=== PATIENT | female | born 1960 | race African-American/Black ===

== ENCOUNTER 2018-07-18 15:04 | Emergency (ER) | payer MEDICAID ==
[~2018-07-18] VITALS: Ht 160 cm; Wt 60.0 kg
[2018-07-18] MEDS ORDERED: METHYLPREDNISOLONE SOD SUCC 125 MG/2 ML VIAL IV STA (22:58)
[2018-07-18] MEDS ORDERED: IPRATROPIUM BROMIDE (0.02%) 0.5MG/2.5ML NEB HHN STA (22:58)
[2018-07-18] MEDS ORDERED: ALBUTEROL (0.083%) 2.5MG/3ML NEB HHN STA (22:58)
[2018-07-18] MEDS ORDERED: ACETAMINOPHEN 500MG TABLET PO ONE (23:30)
[2018-07-19 00:06] LABS: CHLORIDE 108 mEq/L (98-107)
[2018-07-19 01:05] LABS: BASOPHILS % 0.9 % (0.0-2.0); HEMATOCRIT. 46.9 % (36.0-48.0); HEMOGLOBIN. 15.4 g/dL (12.0-16.0); LYMPHOCYTES % 36.8 % (20.0-50.0); MEAN CORPUSCULAR HEMOGLOBIN 29.1 pg (28.0-32.0); MEAN CORPUSCULAR VOLUME 88.8 fL (81.0-99.0); MEAN PLATELET VOLUME 9.2 fl (7.4-10.4); MONOCYTES % 7.4 % (2.0-8.0); NEUTROPHILS % 51.9 % (40.0-76.0); PLATELET 230 x1000/uL (130-400); RED BLOOD CELL COUNT 5.28 mill/uL (4.2-5.4); RED CELL DISTRIBUTION WIDTH 13.5 % (11.6-14.6)
[2018-07-19 01:49] VITALS: BP 122/77
== END 2018-07-19 01:51 | disposition home or self-care (01) ==
LOC: ER 15:04
DX: J45.901 Unspecified asthma with (acute) exacerbation (principal); M79.644 Pain in right finger(s); F31.9 Bipolar disorder, unspecified; F41.9 Anxiety disorder, unspecified; F17.200 Nicotine dependence, unspecified, uncomplicated; Z98.890 Other specified postprocedural states; Z88.1 Allergy status to other antibiotic agents
CPT/HCPCS: 36415; 71045; 80053; 84484; 85025; 93005; 94644; 96374; 99285; J2930; J7611

== ENCOUNTER 2021-03-11 17:08 | Emergency (ER) | payer MEDICAID ==
[~2021-03-11] VITALS: Ht 170.2 cm; Wt 70.0 kg
[2021-03-11] MEDS ORDERED: IBUPROFEN 600MG TABLET PO ONE (18:00)
[2021-03-11 19:32] VITALS: BP 141/89
[2021-03-11] MEDS ORDERED: IBUP-2029 MT (19:32)
== END 2021-03-11 20:02 | disposition home or self-care (01) ==
LOC: ER 17:08
DX: S90.02XA Contusion of left ankle, initial encounter (principal); J44.1 Chronic obstructive pulmonary disease with (acute) exacerbation; J45.909 Unspecified asthma, uncomplicated; Z98.890 Other specified postprocedural states; Z88.1 Allergy status to other antibiotic agents; Y04.0XXA Assault by unarmed brawl or fight, initial encounter; Y93.89 Activity, other specified; Y92.89 Other specified places as the place of occurrence of the external cause; Y99.8 Other external cause status
CPT/HCPCS: 73600; 73620; 99284

== ENCOUNTER 2021-08-30 20:14 | Inpatient (IN) | payer MEDICAID ==
[~2021-08-30] VITALS: Ht 170.2 cm; Wt 73.0 kg
[~2021-08-30 20:14] MED LIST: IBUP-2029 MT
[2021-08-30 20:49] LABS: BASOPHILS % 0.8 % (0.0-2.0); EOSINOPHILS % 0.7 % (0.0-5.0); HEMATOCRIT. 46.9 % (36.0-48.0); HEMOGLOBIN. 15.7 g/dL (12.0-16.0); LYMPHOCYTES % 31.9 % (20.0-50.0); MEAN CORPUSCULAR HEMOGLOBIN 29.4 pg (28.0-32.0); MEAN CORPUSCULAR VOLUME 87.8 fL (81.0-99.0); MEAN PLATELET VOLUME 9.1 fl (7.4-10.4); MONOCYTES % 8.3 % (2.0-8.0); NEUTROPHILS % 58.3 % (40.0-76.0); PLATELET 229 x1000/uL (130-400); RED BLOOD CELL COUNT 5.35 mill/uL (4.2-5.4); RED CELL DISTRIBUTION WIDTH 13.1 % (11.6-14.6)
[2021-08-30 20:56] LABS: CHLORIDE 106 mEq/L (98-107)
[2021-08-30 20:58] LABS: CLARITY URINE CLEAR (CLEAR); COLOR URINE DARK YELLOW (YELLOW); KETONES URINE TRACE (NEGATIVE); LEUKOCYTE ESTERASE URINE 1+ (NEGATIVE); NITRITE URINE NEGATIVE (NEGATIVE); OCCULT BLOOD URINE NEGATIVE (NEGATIVE); PROTEIN URINE TRACE (NEGATIVE); SPECIFIC GRAVITY URINE 1.018 (1.005-1.030)
[2021-08-30] MEDS ORDERED: ONDANSETRON HCL 4MG/2ML INJ IV ONE (21:15)
[2021-08-30] MEDS ORDERED: KETOROLAC 30MG/ML VIAL IV ONE (21:15)
[2021-08-30] MEDS ORDERED: MORPHINE SULFATE 4 MG/ML CPJ (NOT FOR IM USE) IV ONE (22:30)
[2021-08-30] MEDS ORDERED: SODIUM CHLORIDE 0.9% 1,000 ML IV ONE (22:30)
[2021-08-30] MEDS ORDERED: IOHEXOL-300 100 ML BOTTLE ONE (22:39)
[2021-08-30 23:11] LABS: PROTHROMBIN TIME 10.3 sec (9.6-11.0)
[2021-08-31] MEDS ORDERED: IOHEXOL-350 100 ML BOTTLE ONE (02:29)
[2021-08-31] MEDS ORDERED: SODIUM CHLORIDE 0.9% 1,000 ML IV ONE (06:15)
[2021-08-31] MEDS ORDERED: ENOXAPARIN 60MG/0.6ML SYR SUBCUT ONE (07:15)
[2021-08-31] MEDS ORDERED: MORPHINE SULFATE 4 MG/ML CPJ (NOT FOR IM USE) IV ONE (08:45)
[2021-08-31 12:40] VITALS: BP 142/101
[2021-08-31] MEDS ORDERED: ONDANSETRON HCL 4MG/2ML INJ IV PRN (13:00)
[2021-08-31] MEDS: HYDROMORPHONE HCL/PF 2MG/ML CPJ IV PRN ×3 (13:26→22:18)
[2021-08-31] MEDS ORDERED: AMLO10TA4 PO (14:24)
[2021-08-31] MEDS ORDERED: HYDR-4001 MT (14:24)
[2021-08-31] MEDS ORDERED: GABA-533 PO (14:24)
[2021-08-31] MEDS ORDERED: DIVA500T3 PO (14:24)
[2021-08-31] MEDS ORDERED: ALBU05 IH (14:24)
[2021-08-31] MEDS ORDERED: ALPR-341 PO (14:24)
[2021-08-31] MEDS: DEXT 5%/0.45% NACL KCL 10MEQ/L 1,000 ML IV SCH (15:07)
[2021-08-31 16:00] VITALS: BP 121/82
[2021-08-31 20:00] VITALS: BP 117/71
[2021-08-31] MEDS: IPRATROPIUM/ALBUTEROL 0.5-3(2.5)MG/3ML NEB HHN PRN (22:25)
[2021-09-01] VITALS: BP 111/78
[2021-09-01] MEDS: LACTULOSE 20G/30ML UDC PO PRN ×2 (01:20→05:04)
[2021-09-01 04:00] VITALS: BP 144/86
[2021-09-01] MEDS: DEXT 5%/0.45% NACL KCL 10MEQ/L 1,000 ML IV SCH ×2 (05:04→05:07)
[2021-09-01] MEDS: HYDROMORPHONE HCL/PF 2MG/ML CPJ IV PRN (06:40)
[2021-09-01 07:18] LABS: BASOPHILS % 0.9 % (0.0-2.0); EOSINOPHILS % 0.2 % (0.0-5.0); HEMOGLOBIN. 13.6 g/dL (12.0-16.0); LYMPHOCYTES % 17.2 % (20.0-50.0); MEAN CORPUSCULAR HEMOGLOBIN 29.3 pg (28.0-32.0); MEAN CORPUSCULAR VOLUME 88.5 fL (81.0-99.0); MEAN PLATELET VOLUME 9.7 fl (7.4-10.4); MONOCYTES % 8.9 % (2.0-8.0); NEUTROPHILS % 72.8 % (40.0-76.0); PLATELET 192 x1000/uL (130-400); RED BLOOD CELL COUNT 4.64 mill/uL (4.2-5.4); RED CELL DISTRIBUTION WIDTH 13.5 % (11.6-14.6)
[2021-09-01 07:38] LABS: CHLORIDE 110 mEq/L (98-107)
[2021-09-01 08:14] VITALS: BP 136/84
[2021-09-01] MEDS ORDERED: HYDROCODONE/APAP 7.5/325MG 1 TAB TABLET PO PRN (09:30)
[2021-09-01] MEDS ORDERED: HYDROMORPHONE HCL/PF 2MG/ML CPJ IV PRN (09:30)
[2021-09-01] MEDS: IPRATROPIUM/ALBUTEROL 0.5-3(2.5)MG/3ML NEB HHN PRN ×3 (09:51→20:54)
[2021-09-01] MEDS: PREDNISONE 20MG TABLET PO SCH ×2 (10:14→16:44)
[2021-09-01 12:00] VITALS: BP 136/84
[2021-09-01 16:00] VITALS: BP 108/68
[2021-09-01 20:00] VITALS: BP 140/90
[2021-09-01] MEDS ORDERED: NALOXONE HCL 0.4MG/ML VIAL IV PRN (21:00)
[2021-09-01] MEDS: RISPERIDONE 0.25MG TABLET PO SCH (22:01)
[2021-09-02] VITALS: BP 135/85
[2021-09-02] MEDS: IPRATROPIUM/ALBUTEROL 0.5-3(2.5)MG/3ML NEB HHN PRN (02:57)
[2021-09-02 04:00] VITALS: BP 114/69
[2021-09-02] MEDS: DEXT 5%/0.45% NACL KCL 10MEQ/L 1,000 ML IV SCH (06:44)
[2021-09-02] MEDS ORDERED: PREDNISONE 20MG TABLET PO SCH (07:50)
[2021-09-02 08:18] VITALS: BP 129/94
[2021-09-02] MEDS: RISPERIDONE 0.25MG TABLET PO SCH (10:32)
[2021-09-02 11:33] VITALS: BP 131/84
[2021-09-02 11:48] VITALS: BP 131/84
[2021-09-04 13:06] LABS: ACTIN (SMOOTH MUSCLE) ANTIBODY 6 Units (0-19)
[2021-09-05 10:07] LABS: ANTI-NUCLEAR ANTIBODIES DIRECT Negative (Negative)
== END 2021-09-02 17:50 | disposition home or self-care (01) | DRG 663 ==
LOC: ER 20:14 → 6WST 08-31 11:06 → ENRESERV 08-31 11:18
PROVIDERS: ADMIT Hospitalist; ATTEND Hospitalist
DX: D73.5 Infarction of spleen (principal); M30.0 Polyarteritis nodosa; F17.200 Nicotine dependence, unspecified, uncomplicated; I70.8 Atherosclerosis of other arteries; I10 Essential (primary) hypertension; J43.9 Emphysema, unspecified; Z20.822 Contact with and (suspected) exposure to COVID-19; G40.909 Epilepsy, unspecified, not intractable, without status epilepticus; F31.30 Bipolar disorder, current episode depressed, mild or moderate severity, unspecified; Z81.8 Family history of other mental and behavioral disorders; Z88.1 Allergy status to other antibiotic agents; Z79.899 Other long term (current) drug therapy
CPT/HCPCS: 36415; 71275; 74174; 74177; 80053; 81003; 83605; 85025; 86038; 87426; 94640; 99291; J1170; J1650; J1885; J2270; J2405; J7030; J7512; Q9967